=== PATIENT | male | born 1965 | race Two or more races ===

== ENCOUNTER → 2022-07-24 08:40 | Outpatient (CLI) | payer OTHER | END | disposition home or self-care (01) | LOC: LAB 08:40 | PROVIDERS: ATTEND Colon & Rectal Surgery | DX: R19.4 Change in bowel habit (principal); Z03.818 Encounter for observation for suspected exposure to other biological agents ruled out; Z20.822 Contact with and (suspected) exposure to COVID-19 ==

== ENCOUNTER 2023-12-24 11:43 | Emergency (ER) | payer OTHER ==
[~2023-12-24] VITALS: Ht 188 cm; Wt 104.3 kg
[2023-12-24] MEDS ORDERED: ZESTRIL20 MG PO (11:55)
[2023-12-24] MEDS ORDERED: HYDROCHLOROTHIA25 MG PO (11:57)
[2023-12-24] MEDS ORDERED: METOCLOPRAMIDE HCL 5 MG/ML VIAL IV STA (12:21)
[2023-12-24] MEDS ORDERED: 0.9 % SODIUM CHLORIDE 1,000 ML IV STA (12:24)
[2023-12-24] MEDS ORDERED: FAMOtidine 10 MG/ML (4ML VIAL) IV SCH (12:30)
[2023-12-24] MEDS ORDERED: METOCLOPRAMIDE HCL 5 MG/ML VIAL ONE (12:31)
[2023-12-24] MEDS ORDERED: FAMOtidine 200mg/20ml VIAL ONE (12:32)
[2023-12-24 12:56] LABS: HEMATOCRIT 45.9 % (39.0-48.0); HEMOGLOBIN 15.9 g/dL (13-16.00); MEAN CELL VOLUME 85.9 fL (80.0-100.00); MEAN CORPUSCULAR HEMOGLOBIN 29.8 pg (27.00-32.0); MEAN CORPUSCULAR HGB CONC 34.7 g/dl (32.0-36.0); PLATELET COUNT 244 K/uL (150-450); RED BLOOD COUNT 5.34 M/uL (4.00-6.00); RED CELL DISTRIBUTION WIDTH 14.9 % (11.5-14.5)
[2023-12-24 13:07] LABS: PH,URINE 6.5 (5.0-8.0); URINE APPEARANCE Clear; URINE BILIRRUBIN Negative (NEGATIVE); URINE BLOOD Negative; URINE COLOR Yellow; URINE GLUCOSE Negative (NEGATIVE); URINE LEUKOCYTE Negative; URINE NITRATE Negative; URINE PROTEIN Negative (NEGATIVE); URINE UROBILINOGEN 0.2 E.U./dl
[2023-12-24 13:09] LABS: URINE RBC 3.2 uL (0.0-20.8)
[2023-12-24 13:10] LABS: URINE BACTERIA 1.2 uL (0.0-1933); URINE EPITHELIAL CELLS 0.1 uL (0.0-38.8); URINE WBC 1.2 uL (0.0-23.2)
[2023-12-24] MEDS ORDERED: CIPROFLOXACIN IN 5 % DEXTROSE 400 MG/200 ML PIGGYBAG IV STA (14:31)
[2023-12-24] MEDS ORDERED: METRONIDAZOLE/SODIUM CHLORIDE 500 MG/100 ML PIGGYBACK IV STA (14:33)
[2023-12-24 14:45] LABS: ALBUMIN 3.8 gm/dL (3.4-5.0); BILIRUBIN TOTAL 0.5 mg/dL (0.3-1.2); BILIRUBIN,CONJUGATED 0.14 mg/dL (0.0-0.2); BILIRUBIN,UNCONJUGATED 0.36 mg/dL (0.0-0.6); CALCIUM 9.3 mg/dL (8.5-10.1); CREATININE SERUM 0.71 mg/dL (0.70-1.30); GFR 113.95; POTASSIUM 3.92 mEq/L (3.5-5.1); TOTAL PROTEIN 7.9 gm/dL (6.4-8.2)
[2023-12-24] MEDS ORDERED: CIPROFLOXACIN IN 5 % DEXTROSE 400 MG/200 ML PIGGYBAG IV ONE (15:10)
[2023-12-24] MEDS ORDERED: METRONIDAZOLE/SODIUM CHLORIDE 500 MG/100 ML PIGGYBACK IV ONE (15:11)
== END 2023-12-24 16:46 | disposition home or self-care (01) ==
LOC: ER 11:44
PROVIDERS: General Practice
DX: K52.89 Other specified noninfective gastroenteritis and colitis (principal); R10.9 Unspecified abdominal pain; I10 Essential (primary) hypertension; Z20.822 Contact with and (suspected) exposure to COVID-19

== ENCOUNTER 2024-08-05 08:05 | Outpatient (CLI) | payer OTHER ==
[~2024-08-05 08:05] MED LIST: HYDROCHLOROTHIA25 MG PO; ZESTRIL20 MG PO
[2024-08-05 08:52] LABS: HEMATOCRIT 46.1 % (39.0-48.0); HEMOGLOBIN 15.7 g/dL (13-16.00); MEAN CORPUSCULAR HEMOGLOBIN 29.9 pg (27.00-32.0); PLATELET COUNT 213 K/uL (150-450); RED BLOOD COUNT 5.24 M/uL (4.00-6.00); RED CELL DISTRIBUTION WIDTH 15.3 % (11.5-14.5)
[2024-08-05 09:39] LABS: ALBUMIN 3.8 gm/dL (3.4-5.0); BILIRUBIN TOTAL 0.38 mg/dL (0.3-1.2); CALCIUM 8.9 mg/dL (8.5-10.1); CHOL HDL RATIO 4.5 (0-5.0); CREATININE SERUM 0.79 mg/dL (0.70-1.30); GFR 100.74; GLOBULINA 3.6 G/DL (2.4-3.5); POTASSIUM 4.52 mEq/L (3.5-5.1); TOTAL PROTEIN 7.4 gm/dL (6.4-8.2)
[2024-08-05 17:54] LABS: TSH 3.81 uIU/mL (0.358-3.74)
== END 2024-08-05 08:06 | disposition home or self-care (01) ==
LOC: LAB 08:05
PROVIDERS: ATTEND Internal Medicine
DX: I11.9 Hypertensive heart disease without heart failure (principal); E11.9 Type 2 diabetes mellitus without complications; E22.9 Hyperfunction of pituitary gland, unspecified; E03.9 Hypothyroidism, unspecified

== ENCOUNTER 2025-01-27 12:02 | Emergency (ER) | payer OTHER ==
[~2025-01-27] VITALS: Ht 188 cm; Wt 104.3 kg
[2025-01-27 12:37] VITALS: BP 162/82
[2025-01-27] MEDS ORDERED: TETANUS & DIPHTHERIA TOX,ADULT 0.5 ML VIAL IM ONE (13:00)
[2025-01-27] MEDS ORDERED: DIPHTH,PERTUSS(ACELL),TET VAC 0.5 ML SYRINGE IM ONE (13:08)
[2025-01-27 13:31] VITALS: O2SAT 100
== END 2025-01-27 13:32 | disposition home or self-care (01) ==
LOC: ER 12:13
DX: S01.321A Laceration with foreign body of right ear, initial encounter (principal); Y93.89 Activity, other specified; I10 Essential (primary) hypertension; W22.8XXA Striking against or struck by other objects, initial encounter; Y92.018 Other place in single-family (private) house as the place of occurrence of the external cause
CPT/HCPCS: 12014; 90471; 90714; J1670